=== PATIENT | female | born 1970 | race Caucasian/White ===

== ENCOUNTER 2017-06-02 07:24 | Day surgery (SDC) | payer OTHER ==
[~2017-06-02] VITALS: Ht 162.6 cm; Wt 56.7 kg
[2017-06-02 08:34] LABS: BASOPHILS # (AUTO) 0.2 K/uL (0.00-0.22); BASOPHILS % (AUTO) 3.9 % (0.0-2.0); EOSINOPHILS # (AUTO) 0.1 K/uL (0-0.4); HEMATOCRIT 34.9 % (36-48); LYMPHOCYTES # (AUTO) 1.3 K/uL (2.5-16.5); MEAN CORPUSCULAR HEMOGLOBIN 25 pg (27-31); MEAN CORPUSCULAR HGB CONC 32 g/dL (33-37); MEAN CORPUSCULAR VOLUME 80 fL (80-94); MONOCYTES # (AUTO) 0.7 K/uL (0.8-1.0); MONOCYTES % (AUTO) 12.6 % (1.7-9.3); NEUTROPHILS # (AUTO) 3.6 K/uL (1.8-7.7); NEUTROPHILS % (AUTO) 59.5 % (42.2-75.2); PLATELET COUNT (AUTO) 257 K/uL (140-450); RED BLOOD CELL COUNT(AUTO) 4.37 MIL/uL (4.20-5.40); RED CELL DISTRIBUTION WIDTH 14.1 % (11.6-13.7); WHITE BLOOD COUNT (AUTO) 5.9 K/uL (4.8-10.8)
[2017-06-02 08:41] LABS: APPEARANCE,URINE CLEAR (CLEAR); BILIRUBIN,URINE NEGATIVE (NEGATIVE); BLOOD, URINE NEGATIVE (NEGATIVE); COLOR,URINE ORANGE (YELLOW); LEUKOCYTE ESTERASE ,URINE NEGATIVE (NEGATIVE); NITRITE, URINE NEGATIVE (NEGATIVE); PH,URINE 7.5 (5.0-9.0); UGLUCOSE NEGATIVE (NEGATIVE)
[2017-06-02 08:51] LABS: ALBUMIN 3.7 g/dL (3.4-5.0); ANION GAP 7.7 (8-16); CARBON DIOXIDE 28.1 mmol/L (21-32); CREATININE 0.7 mg/dL (0.6-1.3); PHOSPHORUS 3.6 mg/dL (2.5-4.9); POTASSIUM 3.8 mmol/L (3.5-5.1)
[2017-06-02 08:56] LABS: ALBUMIN 3.8 g/dL (3.4-5.0); ANION GAP 8.3 (8-16); CARBON DIOXIDE 28.4 mmol/L (21-32); CREATININE 0.7 mg/dL (0.6-1.3); POTASSIUM 3.7 mmol/L (3.5-5.1); PROTHROMBIN TIME 10.4 secs (10.8-13.4)
[2017-06-02] MEDS ORDERED: fentaNYL 0.05 MG/ML VIAL ONE (10:32)
[2017-06-02] MEDS ORDERED: LACTATED RINGERS 1,000 ML IV SCH (11:21)
[2017-06-02] MEDS ORDERED: IBUPROFEN 600 MG TAB PO PRN (11:25)
[2017-06-02] MEDS ORDERED: methylPREDNISolone AC 80 MG/ML VIAL IM ONE (13:00)
== END 2017-06-02 13:05 | disposition home or self-care (01) ==
LOC: MDS 07:24 → MMU 07:32 → MDS 13:05
PROVIDERS: ATTEND Obstetrics & Gynecology
DX: N92.1 Excessive and frequent menstruation with irregular cycle (principal)
CPT/HCPCS: 36415; 58120; 71010; 80053; 81003; 82040; 82435; 82565; 82947; 84100; 84132; 84295; 84520; 84702; 85025; 85610; 85730; 93005; J1040; J1050; J3010; J7120; Q0092